=== PATIENT | female | born 1995 | race Caucasian/White ===

== ENCOUNTER 2022-01-01 10:03 | Emergency (ER) | payer MEDICAID ==
[~2022-01-01] VITALS: Ht 165.1 cm; Wt 73.0 kg
[2022-01-01 10:17] VITALS: BP 116/95
[2022-01-01] MEDS ORDERED: TETANUS, DIPHTHERIA, PERTUSSIS VAC/PF 0.5ML (>10YR OLD) IM ONE (10:45)
[2022-01-01] MEDS ORDERED: BACITRACIN ZINC OINT UDPKT TOP ONE (10:45)
[2022-01-01] MEDS ORDERED: LIDOCAINE HCL/PF 1% 10 MG/ML 5ML VIAL INFIL ONE (10:45)
[2022-01-01] MEDS ORDERED: IBUP-2029 PO (11:19)
== END 2022-01-01 11:41 | disposition home or self-care (01) ==
LOC: ER 10:03
DX: S71.112A Laceration without foreign body, left thigh, initial encounter (principal); W45.8XXA Other foreign body or object entering through skin, initial encounter; Y93.89 Activity, other specified; Y92.038 Other place in apartment as the place of occurrence of the external cause
CPT/HCPCS: 12002; 90471; 90715; 99283; J3490